=== PATIENT | male | born 1975 | race Caucasian/White ===

== ENCOUNTER → 2019-09-04 | Outpatient (CLI) | payer BC ==
--- NOTE | 2019-09-04 17:54 | US ---
EXAMINATION TYPE: US bladder DATE OF EXAM: 09/04/2019 COMPARISON: NONE CLINICAL HISTORY: N40.0 Benign prostatic hyperplasia. Urinary retention, BPH EXAM MEASUREMENTS: Post Void Residual Volume: 242.7 mL Color Doppler performed to assess ureteral jets. Bilateral Jets seen: yes Normal Post Void Residual (less than 50ml): no Bladder distends normally. No wall thickening. Bilateral ureteral jets noted. IMPRESSION: 1. A bladder has a normal appearance, however, there is significant post void residual.
== END | disposition home or self-care (01) ==
LOC: RADUSWWP 16:15
PROVIDERS: ATTEND Family Medicine
DX: N40.0 Benign prostatic hyperplasia without lower urinary tract symptoms (principal)
CPT/HCPCS: 76857

== ENCOUNTER 2019-10-21 09:49 | Day surgery (SDC) | payer BC ==
[~2019-10-21 09:49] MED LIST: ACETAMINOPHEN TAB 500 MG TAB PO ONE; FAMOTIDINE 20 MG/2 ML VIAL IV PRN; HEPARIN SODIUM,PORCINE 5,000 UNIT/ML 1 ML VIAL SQ ONE; HYDROmorphone 0.5 MG/0.5 ML SYRINGE IVP PRN; LACTATED RINGERS 1,000 ML IV SCH; LIDOCAINE 1% (10MG/ML) FOR IV START INTRADERMA PRN; ONDANSETRON 4 MG/2 ML VIAL IVP PRN; Pre Op ABX Message 1 EACH MISC MISCELLANE ONE
[2019-10-21 10:26] VITALS: RESP 16
[2019-10-21] MEDS ORDERED: ONDANSETRON 4 MG/2 ML VIAL ONE (10:31)
--- NOTE | 2019-10-21 11:23 | P.GSHP ---
History of Present Illness H&P Date: 10/21/19 Chief Complaint: Foreign body left forearm This a 44 she'll male who presents today for removal of foreign body left forearm. 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 He says he is using a punch when he was hammering a punch a piece of metal flew with the punch and struck him in his forearm. Patient rents today for excision of the foreign body. Past Medical History Additional Past Medical History / Comment(s): ABD PAIN, DIARRHEA, CURRENT COUGH AND HEADACHE, NO TEMP History of Any Multi-Drug Resistant Organisms: None Reported Past Surgical History: Hernia Repair Past Anesthesia/Blood Transfusion Reactions: No Reported Reaction Past Psychological History: No Psychological Hx Reported Past Alcohol Use History: Occasional Past Drug Use History: None Reported - Past Family History Father Family Medical History: Cancer, Deep Vein Thrombosis (DVT) Additional Family Medical History / Comment(s): KIDNEY Medications and Allergies Home Medications Medication Instructions Recorded Confirmed Type No Known Home Medications 10/29/14 10/21/19 History Allergies Allergy/AdvReac Type Severity Reaction Status Date / Time amoxicillin Allergy Rash/Hives Verified 10/21/19 10:18 Surgical - Exam Vital Signs Temp Pulse Resp BP Pulse Ox 97.3 F L 64 16 127/88 98 10/21/19 10:24 10/21/19 10:24 10/21/19 10:24 10/21/19 10:24 10/21/19 10:24 - General well developed, well nourished, no distress - Eyes PERRL - ENT normal pinna - Neck no masses - Respiratory normal expansion - Cardiovascular Rhythm: regular - Abdomen Abdomen: soft, non tender - Integumentary 5 mm area with a firm mass in the left medial aspect of the forearm. Assessment and Plan Assessment: Foreign body forearm. Patient will undergo excision.
[2019-10-21] MEDS ORDERED: PROPOFOL 10 MG/ML 20 ML VIAL IV ONE (11:35)
[2019-10-21] MEDS ORDERED: fentaNYL (PF) 50 MCG/ML 2 ML AMP ONE (11:35)
[2019-10-21] MEDS ORDERED: LIDOCAINE 1% INJ 10MG/ML (20 ML MDV) ONE (11:35)
[2019-10-21] MEDS ORDERED: MIDAZOLAM 2 MG/2 ML VIAL ONE (11:35)
[2019-10-21] MEDS ORDERED: LIDOCAINE 1%-EPI 1:100,000 20 ML VIAL SQ ONE (12:06)
--- NOTE | 2019-10-21 12:15 | P.OP ---
Date of Procedure: 10/21/19 Preoperative Diagnosis: Foreign body left arm Postoperative Diagnosis: Foreign body left arm Procedure(s) Performed: Removal of foreign body left arm with fluoroscopy Anesthesia: TAVO Surgeon: Michel Willett Estimated Blood Loss (ml): 3 Pathology: other (Foreign body left arm) Condition: stable Disposition: PACU Description of Procedure: The patient's placed on the operating table in the supine position. He received IV and then general anesthesia. His left arm was prepped and draped in sterile fashion. The mass was felt on the left arm. A 1.5 cm skin incision was made over the mass then using fluoroscopy the foreign body was found and then removed. Fluoroscopy confirmed with the foreign body was removed. The skin was then closed interrupted 3-0 Monocryl suture. Dermabond was applied. The patient tolerated the procedure well.
[2019-10-21 12:21] VITALS: TEMP 98
--- NOTE | 2019-10-21 12:37 | XR ---
EXAMINATION TYPE: XR forearm LT DATE OF EXAM: 10/21/2019 COMPARISON: NONE HISTORY: Foreign body Two views of the forearm demonstrate that the osseous structures appear to be intact and the joint sp aces appear to be preserved. Metallic foreign body seen on the initial image which is not seen on sub sequent images.. IMPRESSION: 1. Interim operative foreign body removal
--- NOTE | 2019-10-21 12:37 | FL ---
EXAMINATION TYPE: FL guidance operating room DATE OF EXAM: 10/21/2019 HISTORY: Fluoroscopy time 12 seconds of fluoroscopy provided. IMPRESSION: 1. Fluoroscopy time.
[2019-10-21 13:42] VITALS: BP 123/77; PULSE 56
== END 2019-10-21 13:55 | disposition home or self-care (01) ==
LOC: OR 09:49
PROVIDERS: ATTEND Surgery
DX: S50.852A Superficial foreign body of left forearm, initial encounter (principal); R05 Cough; R51 Headache; D69.6 Thrombocytopenia, unspecified; Z87.19 Personal history of other diseases of the digestive system; Z98.890 Other specified postprocedural states; Z88.0 Allergy status to penicillin; Z80.51 Family history of malignant neoplasm of kidney; Z82.49 Family history of ischemic heart disease and other diseases of the circulatory system; W20.8XXA Other cause of strike by thrown, projected or falling object, initial encounter; Y93.89 Activity, other specified; Y92.59 Other trade areas as the place of occurrence of the external cause; Y99.0 Civilian activity done for income or pay
CPT/HCPCS: 88300; 73090; 10120; J2250; J1644; J2405; J2001; J3010; J2704

== ENCOUNTER 2019-12-16 07:34 | Day surgery (SDC) | payer BC ==
[~2019-12-16 07:34] MED LIST changes: -FAMOTIDINE 20 MG/2 ML VIAL IV PRN; -HYDROmorphone 0.5 MG/0.5 ML SYRINGE IVP PRN; -LACTATED RINGERS 1,000 ML IV SCH; -LIDOCAINE 1% (10MG/ML) FOR IV START INTRADERMA PRN; -ONDANSETRON 4 MG/2 ML VIAL IVP PRN
[2019-12-16] MEDS ORDERED: DEXAMETHASONE SOD PHOSPHATE 4 MG/ML 1 ML VIAL IV ONE (07:54)
[2019-12-16] MEDS ORDERED: ONDANSETRON 4 MG/2 ML VIAL IVP ONE (07:54)
[2019-12-16] MEDS ORDERED: HYDROmorphone 0.5 MG/0.5 ML SYRINGE IVP PRN (07:54)
[2019-12-16] MEDS ORDERED: LACTATED RINGERS 1,000 ML IV SCH (07:54)
[2019-12-16] MEDS ORDERED: LIDOCAINE 1% (10MG/ML) FOR IV START INTRADERMA ONE (08:21)
[2019-12-16] MEDS ORDERED: MIDAZOLAM 2 MG/2 ML VIAL IVP ONE (08:52)
--- NOTE | 2019-12-16 09:08 | P.GSHP ---
History of Present Illness H&P Date: 12/16/19 Chief Complaint: Muscle weakness, pain This 44 year old male undergoing workup for myositis. Patient presents today for left thigh muscle biopsy Past Medical History Additional Past Medical History / Comment(s): ABD PAIN, DIARRHEA, CURRENT COUGH AND HEADACHE, NO TEMP History of Any Multi-Drug Resistant Organisms: None Reported Past Surgical History: Hernia Repair Past Anesthesia/Blood Transfusion Reactions: No Reported Reaction Past Psychological History: No Psychological Hx Reported Smoking Status: Never smoker Past Alcohol Use History: Occasional Past Drug Use History: None Reported - Past Family History Father Family Medical History: Cancer, Deep Vein Thrombosis (DVT) Additional Family Medical History / Comment(s): KIDNEY Medications and Allergies Home Medications Medication Instructions Recorded Confirmed Type Cholecalciferol (Vitamin D3) 1,000 tab PO DAILY 12/16/19 12/16/19 History [Vitamin D3] Allergies Allergy/AdvReac Type Severity Reaction Status Date / Time amoxicillin Allergy Rash/Hives Verified 10/21/19 10:18 Surgical - Exam Vital Signs Temp Pulse Resp BP Pulse Ox 97.0 F L 66 16 121/70 98 12/16/19 08:16 12/16/19 08:16 12/16/19 08:16 12/16/19 08:16 12/16/19 08:16 - General well developed, well nourished, no distress - Eyes PERRL - ENT normal pinna - Neck no masses - Respiratory normal expansion - Cardiovascular Rhythm: regular - Abdomen Abdomen: soft, non tender Assessment and Plan Assessment: Muscle weakness and pain. We'll perform left thigh muscle biopsy
[2019-12-16] MEDS ORDERED: PROPOFOL 10 MG/ML 20 ML VIAL IV ONE (09:25)
[2019-12-16] MEDS ORDERED: SUCCINYLCHOLINE CHLORIDE 100 MG/5 ML SYR IV ONE (09:25)
[2019-12-16] MEDS ORDERED: LIDOCAINE 1% INJ 10MG/ML (20 ML MDV) ONE (09:25)
[2019-12-16] MEDS ORDERED: fentaNYL (PF) 50 MCG/ML 2 ML AMP ONE (09:25)
[2019-12-16] MEDS ORDERED: MIDAZOLAM 2 MG/2 ML VIAL ONE (09:25)
[2019-12-16] MEDS ORDERED: LIDOCAINE 1%-EPI 1:100,000 20 ML VIAL SQ ONE (09:56)
--- NOTE | 2019-12-16 10:07 | P.OP ---
Date of Procedure: 12/16/19 Preoperative Diagnosis: Myositis Postoperative Diagnosis: Myositis Procedure(s) Performed: Left thigh muscle biopsy Anesthesia: TAVO Surgeon: Michel Willett Estimated Blood Loss (ml): 5 Pathology: other (Left thigh muscle biopsy) Condition: stable Disposition: PACU Description of Procedure: The patient's placed on the surgical table in the supine position. He received general anesthesia. His left thigh was prepped and draped usual sterile fashion. The skin was incised with the 15 blade. Which causes dissected subcutaneous tissue. The fascia was opened care metastases months scissors. The muscle biopsy performed. The muscle was gently dissected and then suture ligated at the proximal distal ends 0 Vicryl. The muscles then sharply dissected free. Several small bleeding spots were's. The fascia close 0 Vicryl.. Skin was closed interrupted 3-0 Monocryl suture. Dermabond was applied. Patient top she will was sent to recovery room in stable condition.
[2019-12-16 10:11] VITALS: TEMP 97.5
[2019-12-16 10:17] VITALS: RESP 16
[2019-12-16 11:02] VITALS: BP 135/86; PULSE 69
--- NOTE | 2019-12-18 11:19 | CDI ---
Date: 12.18.2019 CDS/Film Crew Member Name: Lizzie Maldonado Phone: If any questions, call Yoanna Cm R&D Engineer at [phone] Patient Name: Cedric Laws Admit Date 12.16.19 Discharge Date: 12.16.19 ATTENTION: The [facility] Coding Staff appreciate your assistance in clarifying documentation. Please respond to the clarification below the line at the bottom and electronically sign. The [facility] Coding staff will review the response and follow-up if needed. Please note: Queries are made part of the Legal Health Record. If you have any questions, please contact the R&D Engineer. Dear Dr. Willett In order to code to the greatest specificity and for the greatest reimbursement I need the following information: The muscle biopsy of the thigh that was done, was it superficial or deep? __Superficial __Deep Thank you for your kind consideration. Deep muscle biopsy MTDD
== END 2019-12-16 11:15 | disposition home or self-care (01) ==
LOC: OR 07:34
PROVIDERS: ATTEND Surgery
DX: M60.9 Myositis, unspecified (principal); M62.81 Muscle weakness (generalized); R05 Cough; R51.9 Headache, unspecified; Z87.19 Personal history of other diseases of the digestive system; Z98.890 Other specified postprocedural states; Z88.0 Allergy status to penicillin; Z20.828 Contact with and (suspected) exposure to other viral communicable diseases; Z80.51 Family history of malignant neoplasm of kidney; Z82.49 Family history of ischemic heart disease and other diseases of the circulatory system
CPT/HCPCS: 87635; 20205; J2250; J1644; J1100; J2405; J2001; J3010; J0330; J2704

== ENCOUNTER → 2020-10-10 | Outpatient (CLI) | payer BC ==
[2020-10-10 09:07] LABS: Appearance,Urine Clear (Clear); Bilirubin,Urine Negative (Negative); Blood,Urine Negative (Negative); Color,Urine Yellow; Glucose,Urine (UA) Negative (Negative); Ketones,Urine Negative (Negative); Leukocyte Esterase,Urine Negative (Negative); Nitrite,Urine Negative (Negative); PH, Urine 5.5 (5.0-8.0); Protein,Urine Negative (Negative); Specific Gravity,Urine 1.015 (1.001-1.035); Urobilinogen,Urine <2.0 mg/dL (<2.0)
[2020-10-10 14:50] LABS: Basophils # (A) 0.04 X 10*3/uL (0.00-0.10); Basophils % (A) 0.6 %; Eosinophils # (A) 0.14 X 10*3/uL (0.04-0.35); HCT 44.5 % (39.6-50.0); HGB 15.2 g/dL (13.0-17.0); Lymphocytes # (A) 1.49 X 10*3/uL (0.90-5.00); Lymphocytes % (A) 20.9 %; MCH 29.9 pg (27.0-32.0); MCHC 34.2 g/dL (32.0-37.0); MCV 87.4 fL (80.0-97.0); Mean Platelet Volume 12.4 fL (9.5-12.2); Monocytes # (A) 0.59 X 10*3/uL (0.20-1.00); Monocytes % (A) 8.3 %; Neutrophils # (A) 4.82 X 10*3/uL (1.80-7.70); Neutrophils % (A) 67.6 %; Platelet Count 153 X 10*3/uL (140-440); RBC 5.09 X 10*6/uL (4.40-5.60); RDW 12.8 % (11.5-14.5); WBC 7.12 X 10*3/uL (4.50-10.00)
[2020-10-10 16:41] LABS: African American GFR (CKD) 92.2 (60.0-200.0); Albumin 4.7 g/dL (3.80-4.90); Albumin/Globulin Ratio 1.81 (1.60-3.17); Anion Gap 9.4 mmol/L (4.00-12.00); BUN/Creat Ratio 16.36 Ratio (12.00-20.00); Calcium 9.3 mg/dL (8.7-10.3); Carbon Dioxide 24.6 mmol/L (21.6-31.8); Globulin 2.6 g/dL (1.6-3.3); Non-African American GFR(CKD) 79.5 (60.0-200.0); Potassium 4.4 mmol/L (3.5-5.5); Total Protein 7.3 g/dL (6.2-8.2)
[2020-10-10 16:48] LABS: Prostate Specific Antigen 0.4 ng/mL (0.0-2.5)
[2020-10-10 17:30] LABS: Gliadin AB IgA, Deaminated NEGATIVE (NEGATIVE); Gliadin AB IgA, Unit <0.2 U/mL; Gliadin AB IgG, Deaminated NEGATIVE (NEGATIVE)
== END | disposition home or self-care (01) ==
LOC: LABWHC1 08:30
PROVIDERS: ATTEND Family Medicine
DX: N40.0 Benign prostatic hyperplasia without lower urinary tract symptoms (principal); E55.9 Vitamin D deficiency, unspecified; D69.6 Thrombocytopenia, unspecified; R14.0 Abdominal distension (gaseous); R73.03 Prediabetes
CPT/HCPCS: 36415; 80053; 81003; 82150; 82306; 83036; 83516; 83690; 84153; 85025